=== PATIENT | female | born 1940 | race Caucasian/White ===

== ENCOUNTER 2016-11-10 23:30 | Emergency (ER) | payer MEDICARE, MEDICAID ==
[2016-11-10 23:31] VITALS: BMI 32.2
[2016-11-10 23:39] VITALS: BP 119/76; PULSE 74; RESP 18; TEMP 98.1; O2SAT 99
--- NOTE | 2016-11-10 23:40 | ED PDOC ---
Arrival/HPI - General Chief Complaint: Medical Clearance Time Seen by Provider: 11/10/16 23:31 Historian: Patient, Family (Daughter) - History of Present Illness Narrative History of Present Illness (Text): 11/10/16 23:40 Denice Newman is a 75 year old female, whose past medical history includes Alzheimer's dementia, who presents to the Emergency department brought in by EMS after she was found wandering outside. Daughter present at bedside. Daughter states patient has wandered off in the past and denies any changes in patient's behavior/mental status. Patient denies any chest pain, shortness of breath, nausea, vomiting, diarrhea, headache, dizziness, or any other complaints. Symptom Onset: Gradual Symptom Course: Unchanged Activities at Onset: Light Context: Walking, Street Past Medical History - Provider Review Nursing Documentation Reviewed: Yes - Infectious Disease Hx of Infectious Diseases: None - Psychiatric Hx Substance Use: No - Anesthesia Hx Anesthesia: No Family/Social History - Physician Review Nursing Documentation Reviewed: Yes Family/Social History: Unknown Family HX Smoking Status: Unknown If Ever Smoked Hx Alcohol Use: No Hx Substance Use: No Allergies/Home Meds Allergies/Adverse Reactions: Allergies No Known Allergies Allergy (Verified 04/12/16 15:40) Home Medications: Home Meds Medication Instructions Recorded Confirmed RX: Unobtainable 12/02/15 12/02/15 Review of Systems - Physician Review All systems were reviewed & negative as marked: Yes - Review of Systems Constitutional: Normal. absent: Fevers Eyes: Normal ENT: Normal Respiratory: Normal. absent: SOB, Cough Cardiovascular: Normal. absent: Chest Pain Gastrointestinal: Normal. absent: Abdominal Pain, Diarrhea, Nausea, Vomiting Genitourinary Female: Normal. absent: Dysuria, Frequency, Hematuria, Urine Output Changes Musculoskeletal: Normal. absent: Back Pain, Neck Pain Skin: Normal. absent: Rash Neurological: Normal. absent: Headache, Dizziness Endocrine: Normal Hemo/Lymphatic: Normal Psychiatric: Normal Physical Exam Vital Signs Reviewed: Yes Vital Signs Temp Pulse Resp BP Pulse Ox 11/10/16 23:33 98.1 F 74 18 119/76 99 Temperature: Afebrile Blood Pressure: Normal Pulse: Regular Respiratory Rate: Normal Appearance: Positive for: Well-Appearing, Non-Toxic, Comfortable Pain Distress: None Mental Status: Positive for: other (Alert and oriented to person/place) - Systems Exam Head: Present: Atraumatic, Normocephalic Pupils: Present: PERRL Extroacular Muscles: Present: EOMI Conjunctiva: Present: Normal Mouth: Present: Moist Mucous Membranes Neck: Present: Normal Range of Motion Respiratory/Chest: Present: Clear to Auscultation, Good Air Exchange. No: Respiratory Distress, Accessory Muscle Use Cardiovascular: Present: Regular Rate and Rhythm, Normal S1, S2. No: Murmurs Abdomen: Present: Normal Bowel Sounds. No: Tenderness, Distention, Peritoneal Signs Back: Present: Normal Inspection Upper Extremity: Present: Normal Inspection. No: Cyanosis, Edema Lower Extremity: Present: Normal Inspection. No: Edema Neurological: Present: GCS=15, CN II-XII Intact, Speech Normal Skin: Present: Warm, Dry, Normal Color. No: Rashes Psychiatric: Present: Alert, Normal Insight, Normal Concentration. No: Oriented x 3 (Oriented x 2, person and place) Medical Decision Making ED Course and Treatment: 11/10/16 23:40 Impression: 75 year old female brought in after she was found wandering outside. Differential Diagnosis included but are not limited to: dementia, Alzheimer's type. Plan: -- Reassess and disposition Progress Notes: Daughter present at bedside. States pt has wandered off in the past and states pt is behaving at her baseline. Daughter is comfortably taking pt home. Pt stable for d/c. - Scribe Statement The provider has reviewed the documentation as recorded by the Scribe Janelle Burnett All medical record entries made by the Scribe were at my direction and personally dictated by me. I have reviewed the chart and agree that the record accurately reflects my personal performance of the history, physical exam, medical decision making, and the department course for this patient. I have also personally directed, reviewed, and agree with the discharge instructions and disposition. Disposition/Present on Arrival - Present on Arrival Any Indicators Present on Arrival: No History of DVT/PE: No History of Uncontrolled Diabetes: No Urinary Catheter: No (unknown) History of Decub. Ulcer: No History Surgical Site Infection Following: None - Disposition Have Diagnosis and Disposition been Completed?: Yes Diagnosis: Alzheimers disease Disposition: HOME/ ROUTINE Disposition Time: 23:40 Patient Plan: Discharge Condition: GOOD Additional Instructions: Follow up with your doctor this week Forms: [employer] (Israeli)
== END 2016-11-10 23:59 | disposition home or self-care (01) ==
LOC: ED 23:30
DX: G30.9 Alzheimer's disease, unspecified (principal); F02.80 Dementia in other diseases classified elsewhere, unspecified severity, without behavioral disturbance, psychotic disturbance, mood disturbance, and anxiety

== ENCOUNTER 2016-12-18 05:15 | Emergency (ER) | payer MEDICARE, MEDICAID ==
[2016-12-18 05:15] VITALS: BMI 32.2
[2016-12-18 05:24] VITALS: BP 141/84; PULSE 79; RESP 18; TEMP 98.1; O2SAT 95
--- NOTE | 2016-12-18 05:30 | ED PDOC ---
Arrival/HPI - General Chief Complaint: Medical Clearance Time Seen by Provider: 12/18/16 05:27 Historian: Patient, EMS - History of Present Illness Narrative History of Present Illness (Text): 12/18/16 05:29 76 year old female, whose past medical history includes Alzheimer's dementia, presents to the Emergency department by EMS after she was found wandering outside alone. Patient has done this before and daughter was contacted. Patient denies any fever, chills, chest pain, shortness of breath, nausea, vomiting, diarrhea, urinary symptoms, back pain, neck pain, headache, dizziness, or any other complaints. Time/Duration: Prior to Arrival Symptom Course: Unchanged Activities at Onset: Rest Context: Street Past Medical History - Provider Review Nursing Documentation Reviewed: Yes - Infectious Disease Hx of Infectious Diseases: None - Psychiatric Hx Substance Use: No - Anesthesia Hx Anesthesia: No Family/Social History - Physician Review Nursing Documentation Reviewed: Yes Family/Social History: No Known Family HX Smoking Status: Unknown If Ever Smoked Hx Alcohol Use: No Hx Substance Use: No Allergies/Home Meds Allergies/Adverse Reactions: Allergies No Known Allergies Allergy (Verified 04/12/16 15:40) Home Medications: Home Meds Medication Instructions Recorded Confirmed Unobtainable 12/02/15 12/18/16 Review of Systems - Physician Review All systems were reviewed & negative as marked: Yes - Review of Systems Constitutional: absent: Fevers, Other (Chills) Respiratory: absent: SOB Cardiovascular: absent: Chest Pain Gastrointestinal: absent: Diarrhea, Nausea, Vomiting Genitourinary Female: absent: Dysuria, Frequency, Hematuria Musculoskeletal: absent: Back Pain, Neck Pain Neurological: absent: Headache, Dizziness Physical Exam - Physical Exam Narrative Physical Exam (Text): Constitutional: No acute distress. Head: Normocephalic. Atraumatic. Eyes: PERRL. ENT: Moist mucous membranes. Neck: Supple. Cardiovascular: Regular rate. Chest: No tenderness. Respiratory: Clear to auscultation bilaterally. GI: Soft. Nontender. Nondistended. Back: No CVA tenderness. Musculoskeletal: No tenderness or swelling of extremities. Skin: No rash. Neurologic: Alert, no focal deficit. Normal Concentration. No: Oriented x 3 ( Oriented x 2, person and place) Vital Signs Reviewed: Yes Vital Signs Temp Pulse Resp BP Pulse Ox 12/18/16 05:23 98.1 F 79 18 141/84 95 Temperature: Afebrile Blood Pressure: Normal Pulse: Regular Respiratory Rate: Normal Appearance: Positive for: Well-Appearing, Non-Toxic, Comfortable Pain Distress: None Mental Status: Positive for: Alert and Oriented X 3 (Alert and Oriented X 2, person and place) Medical Decision Making ED Course and Treatment: 12/18/16 05:30 Impression: 75 year old female present by EMS after she was found wandering outside. Plan: -- Reassess and disposition Prior Visits: Notes and results from previous visits were reviewed. On 11/10/2016 patient came in by EMS after found wandering outside. Progress Notes: Family arrived to take patient home. - Scribe Statement The provider has reviewed the documentation as recorded by the Scribe Dionte Tse All medical record entries made by the Scribe were at my direction and personally dictated by me. I have reviewed the chart and agree that the record accurately reflects my personal performance of the history, physical exam, medical decision making, and the department course for this patient. I have also personally directed, reviewed, and agree with the discharge instructions and disposition. Disposition/Present on Arrival - Present on Arrival Any Indicators Present on Arrival: No History of DVT/PE: No History of Uncontrolled Diabetes: No Urinary Catheter: No (unknown) History of Decub. Ulcer: No History Surgical Site Infection Following: None - Disposition Have Diagnosis and Disposition been Completed?: Yes Diagnosis: Alzheimers disease Disposition: HOME/ ROUTINE Disposition Time: 06:00 Patient Plan: Discharge Condition: STABLE Forms: [employer] (Vietnamese)
== END 2016-12-18 06:47 | disposition home or self-care (01) ==
LOC: ED 05:15
DX: G30.9 Alzheimer's disease, unspecified (principal); F02.80 Dementia in other diseases classified elsewhere, unspecified severity, without behavioral disturbance, psychotic disturbance, mood disturbance, and anxiety

== ENCOUNTER 2018-05-23 09:14 | Emergency (ER) | payer MEDICARE, MEDICAID ==
[2018-05-23 09:15] VITALS: BMI 32.2
[2018-05-23 09:52] VITALS: BP 135/82; PULSE 71; RESP 18; TEMP 98.5; O2SAT 97
--- NOTE | 2018-05-23 10:26 | ED PDOC ---
Arrival/HPI - General Chief Complaint: ENT Problem Time Seen by Provider: 05/23/18 09:42 Historian: Patient - History of Present Illness Narrative History of Present Illness (Text): 05/23/18 10:23 77yo female with pmhx of Alzheimer bib the daughter for complaint of sore throat/mouth pain . Daughter states she complained of burning pain while eating yesterday and she had a bump on her palatine. States she drank cleaning chemical few days ago and not sure if is causing her symptoms. she denies drooling, fever, chills, any other complaint. Past Medical History - Provider Review Nursing Documentation Reviewed: Yes - Infectious Disease Hx of Infectious Diseases: None - Neurological Hx Alzheimer's Disease: Yes - Psychiatric Hx Substance Use: No - Surgical History Hx Cholecystectomy: Yes Hx Hysterectomy: Yes - Anesthesia Hx Anesthesia: No Hx Anesthesia Reactions: No Hx Malignant Hyperthermia: No Family/Social History - Physician Review Nursing Documentation Reviewed: Yes Family/Social History: Unknown Family HX Smoking Status: Unknown If Ever Smoked Hx Alcohol Use: No Hx Substance Use: No Allergies/Home Meds Allergies/Adverse Reactions: Allergies No Known Allergies Allergy (Verified 04/12/16 15:40) Review of Systems - Physician Review All systems were reviewed & negative as marked: Yes - Review of Systems Constitutional: Normal Eyes: Normal ENT: Sore Throat Respiratory: Normal Cardiovascular: Normal Gastrointestinal: Normal Genitourinary Female: Normal Musculoskeletal: Normal Skin: Normal Neurological: Normal Endocrine: Normal Hemo/Lymphatic: Normal Psychiatric: Normal Physical Exam Vital Signs Reviewed: Yes Vital Signs Temp Pulse Resp BP Pulse Ox 05/23/18 09:15 98.5 F 71 18 135/82 97 Temperature: Afebrile Blood Pressure: Normal Pulse: Regular Respiratory Rate: Normal Appearance: Positive for: Well-Appearing, Non-Toxic, Comfortable Pain Distress: None Mental Status: Positive for: Alert and Oriented X 3 - Systems Exam Head: Present: Atraumatic, Normocephalic Pupils: Present: PERRL Extroacular Muscles: Present: EOMI Conjunctiva: Present: Normal Mouth: Present: Moist Mucous Membranes Neck: Present: Normal Range of Motion Respiratory/Chest: Present: Clear to Auscultation, Good Air Exchange. No: Respiratory Distress, Accessory Muscle Use Cardiovascular: Present: Regular Rate and Rhythm, Normal S1, S2. No: Murmurs Abdomen: No: Tenderness, Distention, Peritoneal Signs Back: Present: Normal Inspection Upper Extremity: Present: Normal Inspection. No: Cyanosis, Edema Lower Extremity: Present: Normal Inspection. No: Edema Neurological: Present: GCS=15, CN II-XII Intact, Speech Normal Skin: Present: Warm, Dry, Normal Color. No: Rashes Psychiatric: Present: Alert, Oriented x 3, Normal Insight, Normal Concentration Disposition/Present on Arrival - Present on Arrival Any Indicators Present on Arrival: No History of DVT/PE: No History of Uncontrolled Diabetes: No Urinary Catheter: No (unknown) History of Decub. Ulcer: No History Surgical Site Infection Following: None - Disposition Have Diagnosis and Disposition been Completed?: Yes Diagnosis: Sore throat Disposition: HOME/ ROUTINE Disposition Time: 10:40 Patient Plan: Discharge Condition: STABLE Discharge Instructions (ExitCare): Sore Throat in Adults Additional Instructions: Follow up with your Doctor/ENT Return to ED for any new symptoms Prescriptions: Benzocaine [Mouth Pain] 14.7 ml MM BID #5 liquid Referrals: Esteban Marie DO [[facility]] - Follow up with primary Forms: [employer] (Pashto)
== END 2018-05-23 13:22 | disposition home or self-care (01) ==
LOC: ED 09:14
DX: J02.9 Acute pharyngitis, unspecified (principal); G30.9 Alzheimer's disease, unspecified

== ENCOUNTER 2018-06-12 13:02 | Outpatient (CLI) | payer MEDICARE, MEDICAID | END 2018-06-12 13:03 | disposition home or self-care (01) | LOC: RAD 13:02 ==